=== PATIENT | female | born 1980 | race Caucasian/White ===

== ENCOUNTER 2021-02-15 10:11 | Emergency (ER) | payer MEDICAID ==
[~2021-02-15] VITALS: Ht 177.8 cm; Wt 66.0 kg
[2021-02-15 11:59] LABS: CLARITY URINE CLEAR (CLEAR); COLOR URINE YELLOW (YELLOW); KETONES URINE NEGATIVE (NEGATIVE); LEUKOCYTE ESTERASE URINE TRACE (NEGATIVE); NITRITE URINE NEGATIVE (NEGATIVE); OCCULT BLOOD URINE NEGATIVE (NEGATIVE); PROTEIN URINE NEGATIVE (NEGATIVE); SPECIFIC GRAVITY URINE 1.005 (1.005-1.030); UROBILINOGEN URINE 0.2 E.U./dL (0.2-1.0)
[2021-02-15] MEDS ORDERED: IBUPROFEN 600MG TABLET PO STA (12:36)
[2021-02-15] MEDS ORDERED: SULF1TAB48 PO (13:39)
[2021-02-15] MEDS ORDERED: NAPR-681 PO (13:39)
[2021-02-15 13:58] VITALS: BP 107/84
== END 2021-02-15 13:59 | disposition home or self-care (01) ==
LOC: ER 10:14
DX: R82.71 Bacteriuria (principal); B34.9 Viral infection, unspecified; M54.9 Dorsalgia, unspecified
CPT/HCPCS: 71045; 81003; 81025; 87070; 87430; 99284